=== PATIENT | male | born 1980 | race Caucasian/White ===

== ENCOUNTER 2017-10-05 14:00 | Emergency (ER) | payer OTHER ==
[~2017-10-05] VITALS: Ht 188 cm; Wt 143.0 kg
[2017-10-05] MEDS ORDERED: SODIUM CHLORIDE 0.9% 1,000 ML IV ONE (14:05)
[2017-10-05 14:29] LABS: HEMATOCRIT 42.3 % (39.2-51.8); HEMOGLOBIN 14.3 g/dL (13.7-18.0); WHITE BLOOD COUNT 13.7 x10^3/uL (3.4-10)
[2017-10-05] MEDS ORDERED: NALOXONE 1 MG/ML, 2ML IVPush ONE (14:30)
[2017-10-05 14:35] LABS: ASPARTATE AMINO TRANSFERASE 105 U/L (15-37); BLOOD UREA NITROGEN 26 mg/dL (7-18)
[2017-10-05] MEDS ORDERED: NALOXONE 1 MG/ML, 2ML ONE (14:35)
[2017-10-05 14:38] LABS: ACETAMINOPHEN < 2 mcg/mL (10-30)
[2017-10-05] MEDS ORDERED: SUCCINYLCHOLINE 20 MG/ML, 10ML IVPush ONE (15:00)
[2017-10-05] MEDS ORDERED: PROPOFOL 10 MG/ML, 20ML IVPush ONE (15:00)
[2017-10-05] MEDS: PROPOFOL 100 ML IV SCH ×2 (15:13→15:14)
[2017-10-05 15:20] LABS: ABG COLLECTION SITE LEFT BRACHIAL; COLLATERAL CIRCULATION TESTING NORMAL
[2017-10-05 15:24] LABS: DAU SCREEN DISCLAIMER
[2017-10-05 16:09] VITALS: BP 107/69
[2017-10-05] MEDS ORDERED: PROPOFOL 100 ML IV ONE (17:20)
[2017-10-05] MEDS ORDERED: MIDAZOLAM 1 MG/ML, 5ML ONE (17:26)
[2017-10-05] MEDS ORDERED: MIDAZOLAM 1 MG/ML, 5ML IVPush ONE (17:30)
[2017-10-05] MEDS ORDERED: PROPOFOL 10 MG/ML, 100ML IV ONE (18:00)
[2017-10-05] MEDS ORDERED: SUCCINYLCHOLINE 20 MG/ML, 10ML ONE (18:00)
[2017-10-05] MEDS ORDERED: PROPOFOL 10 MG/ML, 20ML ONE (18:00)
== END 2017-10-05 17:29 | disposition short-term general hospital (02) ==
LOC: ED 14:34
DX: T65.91XA Toxic effect of unspecified substance, accidental (unintentional), initial encounter (principal); F32.9 Major depressive disorder, single episode, unspecified; X58.XXXA Exposure to other specified factors, initial encounter; Y93.89 Activity, other specified; Y92.89 Other specified places as the place of occurrence of the external cause; Y99.8 Other external cause status
CPT/HCPCS: 31500; 36415; 36600; 71010; 80053; 80307; 80329; 82803; 85025; 87070; 87205; 93005; 94002; 96361; 96374; 96375; 96376; 99291; J0330; J2250; J2310; J2704; J7030; G0479; G0480

== ENCOUNTER 2020-02-21 18:23 | Emergency (ER) | payer OTHER ==
[~2020-02-21] VITALS: Ht 190.5 cm; Wt 150.6 kg
[2020-02-21 18:25] VITALS: BP 130/91
[2020-02-21] MEDS ORDERED: IBUP-1902 PO (18:54)
--- NOTE | 2020-02-21 19:03 | NUR ---
PT TO X RAY AT THIS TIME. REPORT RECEIVED FROM SHANI LUX. ASSUMED CARE
== END 2020-02-21 19:38 | disposition left against medical advice (07) ==
LOC: ED 19:10
DX: S20.212A Contusion of left front wall of thorax, initial encounter (principal); S20.211A Contusion of right front wall of thorax, initial encounter; S50.11XA Contusion of right forearm, initial encounter; S06.9X1A Unspecified intracranial injury with loss of consciousness of 30 minutes or less, initial encounter; G89.29 Other chronic pain; M54.5 Low back pain; E11.9 Type 2 diabetes mellitus without complications; R00.0 Tachycardia, unspecified; W19.XXXA Unspecified fall, initial encounter; Y93.89 Activity, other specified; Y92.488 Other paved roadways as the place of occurrence of the external cause; Y99.8 Other external cause status
CPT/HCPCS: 71046; 72110; 93005; 99284